=== PATIENT | female | born 1950 | race Caucasian/White ===

== ENCOUNTER 2019-02-22 08:19 | Day surgery (SDC) | payer OTHER ==
[~2019-02-22] VITALS: Ht 165.1 cm; Wt 71.6 kg
[~2019-02-22 08:19] MED LIST: ACET325 PO; DIPH50 PO
== END 2019-02-22 10:24 | disposition home or self-care (01) ==
LOC: ORSCSDS 08:19
DX: R19.4 Change in bowel habit (principal); K62.1 Rectal polyp; K21.9 Gastro-esophageal reflux disease without esophagitis; F17.210 Nicotine dependence, cigarettes, uncomplicated; J44.9 Chronic obstructive pulmonary disease, unspecified
CPT/HCPCS: 88305; J2704; J7120

== ENCOUNTER → 2023-01-11 | Outpatient (CLI) | payer OTHER | LOC: LAB SHORT 11:51 → LAB 11:51 | DX: L08.0 Pyoderma (principal) | CPT/HCPCS: 87070; 87205 ==

== ENCOUNTER → 2023-01-27 | Outpatient (CLI) | payer OTHER | END | disposition home or self-care (01) | LOC: LAB SHORT 15:06 → LAB 15:06 | DX: L98.9 Disorder of the skin and subcutaneous tissue, unspecified (principal) | CPT/HCPCS: 88305 ==

== ENCOUNTER → 2023-02-09 | Outpatient (CLI) | payer OTHER | LOC: LAB SHORT 17:03 → LAB 17:03 | DX: C50.911 Malignant neoplasm of unspecified site of right female breast (principal) | CPT/HCPCS: 87070; 87075; 87076; 87205 ==

== ENCOUNTER 2023-03-18 06:56 | Day surgery (SDC) | payer OTHER ==
[~2023-03-18] VITALS: Ht 160 cm; Wt 73.0 kg
[2023-03-18] VITALS (7 sets, daily range): BP systolic 120–148; BP diastolic 65–77
[~2023-03-18 06:56] MED LIST changes: -ACET325 PO; +ASPI81CH PO; +Acetaminophen650 M1 PO; +IBUP200 PO
--- NOTE | 2023-03-18 08:11 | NUR ---
PRE-OP NOTE PT A&OX4, BREATHING RA, NO ACUTE CONCERNS. Ambulatory in Day Surgery Patient confirms NPO status and agrees with scheduled surgery. Pre-Op teaching done. Pt verbalizes understanding. Patient States Post-Procedure ride home has been arranged.
--- NOTE | 2023-03-18 09:51 | NUR ---
REPORT RECEIVED FROM ORLANDO SINGH RN. VSS. PT ABLE TO REPOSITION SELF IN BED. PT REQUESTING PO FOOD AND FLUIDS AND TOLERATING THEM WELL. PT REPORTS 4/10 ACHING PAIN TO RIGHT BREAST THAT IS TOLERABLE. PT REPORTS SHE DOES NOT NEED PAIN MEDICATION AT THIS TIME. PT DENIES NAUSEA OR OTHER DISCOMFORTS AT THIS TIME. PT HAS EXOFEN AND GAUZE TO RIGHT BREAST THAT IS C/D/I WITHOUT DRAINAGE, REDNESS, OR SWELLING. PT ALSO HAS BREAST BINDER IN PLACE.
--- NOTE | 2023-03-18 10:50 | NUR ---
Patient up to Ambulate independently. Gait steady. VSS AND CONSISTENT WITH PT BASELINE. PT VERBALIZES READINESS TO GO HOME. Discharge instructions reviewed with patient. Patient verbalizes understanding. Copy given to patient to take home. Dressing to procedure site clean, dry, intact with no visible drainage, swelling, erythema or bruising noted. Patient States Post-Procedure ride home has been arranged. Discharged via wheelchair to private car for ride home. PT BELONGINGS RETURNED TO PT.
== END 2023-03-18 10:53 | disposition home or self-care (01) ==
LOC: ORSCMMR 06:56 → ORD 08:15 → ORSCMMR 10:53
PROVIDERS: Surgery
PROC: 0HBT0ZZ Excision of Right Breast, Open Approach (ICD-10-PCS; principal; 2023-03-18 08:15)
DX: C50.911 Malignant neoplasm of unspecified site of right female breast (principal); Z17.0 Estrogen receptor positive status [ER+]; Z85.3 Personal history of malignant neoplasm of breast; F17.210 Nicotine dependence, cigarettes, uncomplicated; Z79.82 Long term (current) use of aspirin
CPT/HCPCS: 88307; 88360; A9270; J0690; J1100; J1885; J2250; J2405; J2704; J3010; J7120